=== PATIENT | female | born 1980 | race Two or more races ===

== ENCOUNTER 2016-12-06 15:13 | Inpatient (IN) | payer MEDICAID ==
[~2016-12-06] VITALS: Ht 157.5 cm; Wt 88.2 kg
[2016-12-06] MEDS ORDERED: ONDANSETRON 2MG/ML, 2ML ONE (15:52)
[2016-12-06] MEDS ORDERED: ONDANSETRON 2MG/ML, 2ML IVPush ONE (16:00)
[2016-12-06] MEDS ORDERED: SODIUM CHLORIDE 0.9% 1,000ML IVBOLUS ONE ×2 (16:00→17:30)
[2016-12-06] MEDS ORDERED: SODIUM CHLORIDE FLUSH 10ML SYR IVF ONE (16:00)
[2016-12-06 16:13] LABS: HEMATOCRIT 42.5 % (34.6-47.8); HEMOGLOBIN 14.5 g/dL (11.7-16.4); WHITE BLOOD COUNT 18.6 x10^3/uL (3.4-10)
[2016-12-06 16:22] LABS: BLOOD UREA NITROGEN 5 mg/dL (7-18)
[2016-12-06 16:32] LABS: DIFF TOTAL CELLS COUNTED 100 CELL DIFF
[2016-12-06 16:35] LABS: VERIFY COUNTS? YES
[2016-12-06 16:41] LABS: ASPARTATE AMINO TRANSFERASE 10 U/L (15-37)
[2016-12-06] MEDS ORDERED: CEFTRIAXONE PMX 1GM/50ML 50 ML ONE (17:24)
[2016-12-06] MEDS ORDERED: CEFTRIAXONE PMX 1GM/50ML 50 ML IV ONE (17:30)
[2016-12-06] MEDS ORDERED: OMNIPAQUE 350 MG/ML, 100ML BOTTLE ONE (18:11)
[2016-12-06] MEDS ORDERED: ALBUTEROL SULFATE 2.5 MG/3 ML NPPB ONE (18:30)
[2016-12-06] MEDS ORDERED: PREN1TAB60 PO (19:05)
[2016-12-06] MEDS ORDERED: BISACODYL 10 MG SUPP PR PRN (20:00)
[2016-12-06] MEDS ORDERED: ACETAMINOPHEN 325 MG TABLET PO PRN (20:00)
[2016-12-06] MEDS ORDERED: CEFTRIAXONE PMX 1GM/50ML 50 ML IV SCH (20:00)
[2016-12-06] MEDS ORDERED: ONDANSETRON 2MG/ML, 2ML IVPush PRN (20:00)
[2016-12-06 20:28] VITALS: BP 131/85
[2016-12-06] MEDS: SODIUM CHLORIDE 0.9% 1,000 ML IV SCH (20:53)
[2016-12-07] MEDS ORDERED: ALBUTEROL SULFATE 2.5 MG/3 ML ONE ×2 (00:20→21:49)
[2016-12-07] MEDS ORDERED: ALBUTEROL SULFATE 2.5MG/0.5ML NPPB PRN ×2 (00:30→22:30)
[2016-12-07 01:31] VITALS: BP 136/82
[2016-12-07 05:09] LABS: HEMOGLOBIN 12.6 g/dL (11.7-16.4); WHITE BLOOD COUNT 11.9 x10^3/uL (3.4-10)
[2016-12-07 05:41] LABS: ASPARTATE AMINO TRANSFERASE 12 U/L (15-37); BLOOD UREA NITROGEN 4 mg/dL (7-18)
[2016-12-07] MEDS: SODIUM CHLORIDE 0.9% 1,000 ML IV SCH ×2 (06:47→17:29)
[2016-12-07] MEDS: PRENATAL VIT/IRON/FA 1 EACH TABLET PO SCH (07:27)
[2016-12-07 07:35] VITALS: BP 117/70
[2016-12-07 15:03] VITALS: BP 110/63
[2016-12-07 19:47] VITALS: BP 111/72
[2016-12-08 01:44] VITALS: BP 99/58
[2016-12-08] MEDS ORDERED: ALBUTEROL SULFATE 2.5 MG/3 ML NPPB PRN (04:00)
[2016-12-08] MEDS: SODIUM CHLORIDE 0.9% 1,000 ML IV SCH (04:25)
[2016-12-08 07:29] VITALS: BP 99/61
[2016-12-08] MEDS ORDERED: CEFUROXIME 500 MG TABLET PO SCH (09:00)
[2016-12-08] MEDS ORDERED: CEFUROXIME 250 MG TABLET PO SCH (09:00)
[2016-12-08] MEDS ORDERED: CEFU250T66 PO (09:26)
[2016-12-08] MEDS: PRENATAL VIT/IRON/FA 1 EACH TABLET PO SCH (09:29)
== END 2016-12-08 10:57 | disposition home or self-care (01) | DRG 781 ==
LOC: ED 17:18 → EDIP 18:28 → 3NE 20:05
PROVIDERS: ADMIT Internal Medicine; ATTEND Hospitalist
DX: O21.1 Hyperemesis gravidarum with metabolic disturbance (principal); N10 Acute pyelonephritis; O26.611 Liver and biliary tract disorders in pregnancy, first trimester; O23.01 Infections of kidney in pregnancy, first trimester; K83.5 Biliary cyst; E86.0 Dehydration; O99.331 Smoking (tobacco) complicating pregnancy, first trimester; O99.511 Diseases of the respiratory system complicating pregnancy, first trimester; F17.210 Nicotine dependence, cigarettes, uncomplicated; J40 Bronchitis, not specified as acute or chronic; Z3A.10 10 weeks gestation of pregnancy
CPT/HCPCS: 36415; 71275; 76801; 80053; 81001; 83605; 84145; 84702; 85025; 87040; 87077; 87086; 87186; 94640; 96365; 96366; 96375; J0696; J2405; J7611; J7613; Q9967; J7030

== ENCOUNTER 2019-05-30 09:25 | Inpatient (IN) | payer MEDICAID ==
[~2019-05-30] VITALS: Ht 154.9 cm; Wt 92.3 kg
[~2019-05-30 09:25] MED LIST: CEFU250T66 PO; PREN1TAB60 PO
--- NOTE | 2019-05-30 10:10 | NUR ---
THIS IS A 38 YO F W/ C/O LUQ PAIN 10/22 THAT STARTED LAST NIGHT. PT REPORTS NAUSEA DENIES VOMITING. DENIES DIARRHEA/PAIN W/ URINATION. PT TACHYCARDIC ALL OTHER VITALS WDL. PT IS RESTING ON GURNEY. MARIA G JAMES AT BEDSIDE FOR EVAL. URINE COLLECTED. PT CONNECTED TO MONITORING. AWAITING ORDERS.
[2019-05-30] MEDS ORDERED: MORPHINE SULFATE 4 MG/ML, 1ML ONE (10:14)
[2019-05-30] MEDS ORDERED: ONDANSETRON 2MG/ML, 2ML ONE (10:14)
--- NOTE | 2019-05-30 10:28 | NUR ---
PIV STARTED. LABS DRAWN. PT MEDICATED PER EMAR.
[2019-05-30 10:29] LABS: CULTURE INDICATED? YES; MICROSCOPIC INDICATED
[2019-05-30] MEDS ORDERED: MORPHINE SULFATE 4 MG/ML, 1ML IVPush PRN (10:30)
[2019-05-30] MEDS ORDERED: SODIUM CHLORIDE FLUSH 10ML SYR IVF ONE (10:30)
[2019-05-30] MEDS ORDERED: ONDANSETRON 2MG/ML, 2ML IVPush ONE (10:30)
[2019-05-30 10:55] LABS: BASOPHILS # (AUTO) 0.05 x10^3/uL (0-0.1); BASOPHILS % (AUTO) 0 % (0-1); EOSINOPHILS # (AUTO) 0.03 x10^3/uL (0-0.4); EOSINOPHILS % (AUTO) 0 % (1-7); LYMPHOCYTES # (AUTO) 2.01 x10^3/uL (1-3.4); LYMPHOCYTES % (AUTO) 13 % (22-44); MD NO; MEAN CORPUSCULAR HEMOGLOBIN 28.4 pg (27.0-34.8); MEAN CORPUSCULAR HGB CONC 33.3 g/dL (32.4-35.8); MEAN CORPUSCULAR VOLUME 85.3 fL (80-100); MEAN PLATELET VOLUME 7.5 fL (7.4-10.4); MONOCYTES # (AUTO) 1.01 x10^3/uL (0.2-0.8); MONOCYTES % (AUTO) 7 % (2-9); NEUTROPHILS # (AUTO) 12.12 x10^3/uL (1.8-6.8); NEUTROPHILS % (AUTO) 80 % (42-75); PLATELET COUNT 413 x10^3/uL (130-400); RED BLOOD COUNT 5.33 x10^6/uL (3.82-5.3); RED CELL DISTRIBUTION WIDTH 13.1 % (9.6-15.2)
[2019-05-30 10:57] LABS: ALANINE AMINOTRANSFERASE 24 U/L (12-78); ALBUMIN 3.6 g/dL (3.4-5.0); ANION GAP 8 mmol/L (5-15); CALCIUM 8.9 mg/dL (8.5-10.1); CHLORIDE 98 mmol/L (98-107); CREATININE 1.01 mg/dL (0.55-1.02)
--- NOTE | 2019-05-30 10:59 | NUR ---
PT REPORTS RELIEF OF PAIN W/ MEDS. RESTING ON GURNEY W/ CALL LIGHT IN REACH. AWAITING LAB RESULTS.
--- NOTE | 2019-05-30 11:00 | NUR ---
PT DROWSY AFTER PAIN MEDS, SATS 88% RA WHEN SLEEPING. PT ENCOURAGED TO TAKE DEEP BREATHS. PLACED ON 2L NC.
[2019-05-30 11:02] LABS: ALKALINE PHOSPHATASE 103 U/L (45-117); BILIRUBIN,TOTAL 0.7 mg/dL (0.2-1.0); TOTAL PROTEIN 8.1 g/dL (6.4-8.2)
[2019-05-30] MEDS ORDERED: CEFTRIAXONE PMX 1GM/50ML 50 ML IVPB ONE (11:30)
[2019-05-30] MEDS ORDERED: SODIUM CHLORIDE 0.9% 1,000ML IVBOLUS ONE (11:30)
[2019-05-30] MEDS ORDERED: KETOROLAC 30 MG/1 ML IVPush ONE (11:30)
--- NOTE | 2019-05-30 11:30 | NUR ---
PT DECLINED TORADOL. REPORTS 0 PAIN.
[2019-05-30] MEDS ORDERED: CEFTRIAXONE PMX 1GM/50ML 50 ML ONE (11:31)
--- NOTE | 2019-05-30 11:47 | NUR ---
PT GIVEN WATER W/ APPROVAL FROM . UPDATED ON POC FOR ADMIT.
[2019-05-30] MEDS ORDERED: PROMETHAZINE 25 MG/ML, 1ML IM PRN (12:00)
[2019-05-30] MEDS ORDERED: ONDANSETRON 2MG/ML, 2ML IVPush PRN (12:00)
[2019-05-30] MEDS ORDERED: HYDROcodone/APAP 5/325 TABLET PO PRN (12:00)
[2019-05-30] MEDS ORDERED: morphine SULFATE 10 MG/ML, 1ML IVPush PRN (12:00)
--- NOTE | 2019-05-30 12:23 | NUR ---
PT RESTING ON GURNEY W/ FAMILY AT BEDSIDE AND CALL LIGHT IN REACH. VS STABLE. DENIES FURTHER NEEDS AT THIS TIME.
[2019-05-30] MEDS: SODIUM CHLORIDE 0.9% 1,000 ML IV SCH ×5 (12:29→16:38)
--- NOTE | 2019-05-30 12:51 | NUR ---
TELEPHONE CALL TO R TO SPEAK W/ REGARDING ABX AND CULTURES. 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
--- NOTE | 2019-05-30 13:11 | NUR ---
HOSPITAL BED REQ.
[2019-05-30] MEDS ORDERED: NICOTINE 7 MG/24 HR PATCH.TD24 ONE (13:14)
[2019-05-30] MEDS ORDERED: ENOXAPARIN 40 MG/0.4 ML ONE (13:14)
[2019-05-30] MEDS: ENOXAPARIN 40 MG/0.4 ML SQ SCH (13:19)
[2019-05-30] MEDS: NICOTINE 7 MG/24 HR PATCH.TD24 TD SCH (13:21)
--- NOTE | 2019-05-30 13:33 | NUR ---
MD RENEE AWARE THAT ABX HUNG BEFORE BLOOD CULTURES.
--- NOTE | 2019-05-30 13:36 | NUR ---
REGULAR DIET TRAY ORDERED.
--- NOTE | 2019-05-30 14:00 | NUR ---
PT ABLE TO TRANSFER SELF TO CHAIR. HOSPITAL BED PLACED IN ROOM. PT PROVIDED WITH MEAL TRAY. FLUIDS AT BEDSIDE. IV INFUISING WITHOUT REDNESS/SWELLING. NO OTHER NEEDS EXPRESSED AT THIS TIME.
--- NOTE | 2019-05-30 14:30 | NUR ---
REMOVED NC TO CHECK PT RA SATS. DECREASED TO 88% WHEN DOZING. PT PLACED ON 2L NC. WITH INCRASED IN SATS.
--- NOTE | 2019-05-30 14:44 | NUR ---
REPORT GIVEN TO GEMA JAUREGUI. PT IS READY FOR TRANSPORT. LR STILL INFUSING.
[2019-05-30 15:33] VITALS: BP 109/73
[2019-05-30] MEDS: CEFTRIAXONE PMX 1GM/50ML 50 ML IV SCH (16:38)
[2019-05-30 19:02] VITALS: BP 102/73
[2019-05-31 00:12] VITALS: BP 111/70
[2019-05-31] MEDS: SODIUM CHLORIDE 0.9% 1,000 ML IV SCH ×2 (02:54→12:58)
[2019-05-31 05:45] LABS: ALANINE AMINOTRANSFERASE 31 U/L (12-78); ALBUMIN 2.8 g/dL (3.4-5.0); ANION GAP 6 mmol/L (5-15); CALCIUM 8.5 mg/dL (8.5-10.1); CHLORIDE 106 mmol/L (98-107); CREATININE 0.73 mg/dL (0.55-1.02)
[2019-05-31 05:48] LABS: ALKALINE PHOSPHATASE 90 U/L (45-117); BILIRUBIN,TOTAL 0.7 mg/dL (0.2-1.0); TOTAL PROTEIN 7.1 g/dL (6.4-8.2)
[2019-05-31 05:50] LABS: BASOPHILS # (AUTO) 0.03 x10^3/uL (0-0.1); BASOPHILS % (AUTO) 0 % (0-1); EOSINOPHILS # (AUTO) 0.11 x10^3/uL (0-0.4); EOSINOPHILS % (AUTO) 1 % (1-7); LYMPHOCYTES % (AUTO) 19 % (22-44); MD NO; MEAN CORPUSCULAR HEMOGLOBIN 28.6 pg (27.0-34.8); MEAN CORPUSCULAR HGB CONC 33.6 g/dL (32.4-35.8); MEAN CORPUSCULAR VOLUME 85.2 fL (80-100); MEAN PLATELET VOLUME 7.7 fL (7.4-10.4); MONOCYTES # (AUTO) 0.96 x10^3/uL (0.2-0.8); MONOCYTES % (AUTO) 8 % (2-9); NEUTROPHILS % (AUTO) 71 % (42-75); PLATELET COUNT 322 x10^3/uL (130-400); RED BLOOD COUNT 4.68 x10^6/uL (3.82-5.3); RED CELL DISTRIBUTION WIDTH 13.5 % (9.6-15.2)
[2019-05-31 08:55] VITALS: BP 119/80
[2019-05-31] MEDS: NICOTINE 7 MG/24 HR PATCH.TD24 TD SCH (10:57)
[2019-05-31] MEDS: ENOXAPARIN 40 MG/0.4 ML SQ SCH (12:58)
[2019-05-31 13:00] VITALS: BP 111/75
[2019-05-31] MEDS: CEFTRIAXONE PMX 1GM/50ML 50 ML IV SCH (16:39)
[2019-05-31 19:32] VITALS: BP 121/69
[2019-06-01] MEDS: SODIUM CHLORIDE 0.9% 1,000 ML IV SCH ×2 (00:53→08:56)
[2019-06-01 01:34] VITALS: BP 126/63
[2019-06-01 06:00] LABS: CHLORIDE 107 mmol/L (98-107)
[2019-06-01 06:01] LABS: ALANINE AMINOTRANSFERASE 40 U/L (12-78); ALBUMIN 2.5 g/dL (3.4-5.0); ANION GAP 4 mmol/L (5-15); CALCIUM 8.4 mg/dL (8.5-10.1); CREATININE 0.68 mg/dL (0.55-1.02)
[2019-06-01 06:15] LABS: BASOPHILS # (AUTO) 0.04 x10^3/uL (0-0.1); BASOPHILS % (AUTO) 1 % (0-1); EOSINOPHILS # (AUTO) 0.32 x10^3/uL (0-0.4); EOSINOPHILS % (AUTO) 4 % (1-7); LYMPHOCYTES # (AUTO) 2.14 x10^3/uL (1-3.4); LYMPHOCYTES % (AUTO) 25 % (22-44); MD NO; MEAN CORPUSCULAR HEMOGLOBIN 28.4 pg (27.0-34.8); MEAN CORPUSCULAR HGB CONC 33.2 g/dL (32.4-35.8); MEAN CORPUSCULAR VOLUME 85.5 fL (80-100); MEAN PLATELET VOLUME 7.9 fL (7.4-10.4); MONOCYTES # (AUTO) 0.67 x10^3/uL (0.2-0.8); MONOCYTES % (AUTO) 8 % (2-9); NEUTROPHILS # (AUTO) 5.33 x10^3/uL (1.8-6.8); NEUTROPHILS % (AUTO) 63 % (42-75); PLATELET COUNT 309 x10^3/uL (130-400); RED BLOOD COUNT 4.36 x10^6/uL (3.82-5.3); RED CELL DISTRIBUTION WIDTH 13.8 % (9.6-15.2)
[2019-06-01 06:23] LABS: ALKALINE PHOSPHATASE 93 U/L (45-117); BILIRUBIN,TOTAL 0.2 mg/dL (0.2-1.0); TOTAL PROTEIN 6.6 g/dL (6.4-8.2)
[2019-06-01 06:50] VITALS: BP 93/57
[2019-06-01] MEDS: NICOTINE 7 MG/24 HR PATCH.TD24 TD SCH (11:47)
[2019-06-01] MEDS ORDERED: SULF1TAB24 PO (12:05)
[2019-06-01] MEDS ORDERED: ONDA4TAB7 PO (12:06)
[2019-06-01] MEDS: ENOXAPARIN 40 MG/0.4 ML SQ SCH (12:47)
[2019-06-01] MEDS: CEFTRIAXONE PMX 1GM/50ML 50 ML IV SCH (14:23)
[2019-06-01 15:00] VITALS: BP 98/63
== END 2019-06-01 15:50 | disposition home or self-care (01) | DRG 871 ==
LOC: ED 11:30 → EDIP 11:31 → ED 11:41 → 3N 15:05 → DCLOUNGE 06-01 15:34
PROVIDERS: ADMIT Emergency Medicine; ATTEND Emergency Medicine
DX: A41.9 Sepsis, unspecified organism (principal); K85.90 Acute pancreatitis without necrosis or infection, unspecified; E87.1 Hypo-osmolality and hyponatremia; N10 Acute pyelonephritis; B96.20 Unspecified Escherichia coli [E. coli] as the cause of diseases classified elsewhere; E66.9 Obesity, unspecified; Z68.38 Body mass index [BMI] 38.0-38.9, adult; E86.0 Dehydration; E86.1 Hypovolemia; Z72.0 Tobacco use
CPT/HCPCS: 36415; 80053; 81001; 83036; 83605; 83690; 84703; 85025; 87040; 87077; 87086; 87186; 96374; G0378; J0696; J1650; J2405; J2270; J7030

== ENCOUNTER 2020-09-01 11:21 | Emergency (ER) | payer MEDICAID ==
[~2020-09-01] VITALS: Ht 157.5 cm; Wt 93.2 kg
[~2020-09-01 11:21] MED LIST changes: +ONDA4TAB7 PO; +SULF-23 PO
[2020-09-01 11:33] VITALS: BP 170/68
--- NOTE | 2020-09-01 11:46 | NUR ---
[id number]
--- NOTE | 2020-09-01 11:52 | NUR ---
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
--- NOTE | 2020-09-01 12:03 | NUR ---
ERPA AT BEDSIDE FOR ASSESSMENT.
[2020-09-01 12:09] LABS: BASOPHILS % (AUTO) 1 % (0-1); EOSINOPHILS % (AUTO) 2 % (1-7); LYMPHOCYTES % (AUTO) 25 % (22-44); MEAN CORPUSCULAR HEMOGLOBIN 28.9 pg (27.0-34.8); MEAN CORPUSCULAR HGB CONC 34.4 g/dL (32.4-35.8); MEAN PLATELET VOLUME 7.3 fL (7.4-10.4); MONOCYTES % (AUTO) 7 % (2-9); NEUTROPHILS % (AUTO) 67 % (42-75); PLATELET COUNT 381 x10^3/uL (130-400); RED BLOOD COUNT 5.01 x10^6/uL (3.82-5.3); RED CELL DISTRIBUTION WIDTH 14.1 % (9.6-15.2)
[2020-09-01 12:16] LABS: MD NO
[2020-09-01 12:19] LABS: ALBUMIN 3.8 g/dL (3.4-5.0); ANION GAP 6 mmol/L (5-15); CALCIUM 9.5 mg/dL (8.5-10.1); CHLORIDE 102 mmol/L (98-107); CREATININE 0.71 mg/dL (0.55-1.02)
--- NOTE | 2020-09-01 12:22 | NUR ---
ALL RESULTS ARE BACK AT THIS TIME. CHART UP FOR RECHECK.
--- NOTE | 2020-09-01 12:38 | NUR ---
ERP TO CONSULT WITH DANYELLE
[2020-09-01] MEDS ORDERED: DIPH,PERTUSS(ACELL),TET VAC/PF 0.5 ML IM-VACC ONE ×2 (13:29→13:30)
== END 2020-09-01 13:37 | disposition home or self-care (01) ==
LOC: ED 12:19
DX: S80.251A Superficial foreign body, right knee, initial encounter (principal); M25.461 Effusion, right knee; R00.0 Tachycardia, unspecified; Z88.0 Allergy status to penicillin; Z88.5 Allergy status to narcotic agent; X58.XXXA Exposure to other specified factors, initial encounter; Y93.89 Activity, other specified; Y92.009 Unspecified place in unspecified non-institutional (private) residence as the place of occurrence of the external cause; Y99.8 Other external cause status
CPT/HCPCS: 36415; 80048; 82040; 85025; 85651; 86140; 90471; 90715; 99284